=== PATIENT | female | born 1950 | race Caucasian/White ===

== ENCOUNTER 2023-04-23 08:01 | Outpatient (CLI) | payer MEDICARE, BC, SELFPAY ==
--- OUTSIDE RECORDS SUMMARY | 2023-04-26 09:04 | XMS_ITS | Clinical Summary ---
Author Name Unknown Organization [facility] Address [place], [place] [address] Care Team Providers Care Licensed Physical Therapy Assistant Name Role Phone Francy Moreno MD Primary Care Provider [phone] Allergies No known active allergies Medications Medication Sig Dispensed Refills Start Date End Date Status aspirin (ECOTRIN) 81 mg enteric coated tablet Take 1 tablet by mouth once daily with a meal. 0 02/02/2017 Active cholecalciferol (VITAMIN D-3) 2,000 unit capsuleIndications :Vitamin D deficiency Take 1 capsule by mouth once daily. 90 capsule 3 07/12/2017 Active blood-glucose meterIndications:T ype 2 diabetes mellitus without complication, with long-term current use of insulin (HC) Dispense meter, test strips #100 with 3 refills, lancets #100 (3 refills) covered by pt ins. E11.9 NIDDM type II - Test 1 time/day 100 Each 3 06/16/2021 Active Contour Next Test Strips stripIndications:T ype 2 diabetes mellitus without complication, with long-term current use of insulin (HC) USE WITH METER TO TEST BLOOD SUGAR ONCE A DAY 100 Each 3 05/16/2022 Active metFORMIN (GLUCOPHAGE XR) 500 mg Extended-Release tabletIndications: Type 2 diabetes mellitus without complication, with long-term current use of insulin (HC) Take 2 Tablets (1,000 mg) by mouth once daily with a meal. 60 Tablet 2 07/01/2022 Active glipiZIDE (GLUCOTROL) 5 mg tablet 5 mg two times daily before meals. 0 07/20/2022 Active amLODIPine (NORVASC) 5 mg tablet Take 5 mg by mouth once daily. 0 07/20/2022 Active gabapentin (NEURONTIN) 100 mg capsule Take 200 mg by mouth once daily. 0 07/20/2022 Active CPAPIndications:OS A on CPAP CPAP machine for home use at pressure 5-15cmw, nasal mask x1/3month with nasal pillows x 2/mo 1 Each 11 01/25/2023 Active omeprazole (PRILOSEC) 20 mg Delayed-Release capsuleIndications :Dysphagia, unspecified type Take 1 Capsule (20 mg) by mouth once daily before a meal. 90 Capsule 0 04/21/2023 Active losartan-hydrochlo rothiazide (HYZAAR) 100-25 mg tabletIndications: Essential hypertension Take 1 Tablet by mouth once daily. Replaces previous Rx with additional refill. 90 Tablet 0 04/21/2023 Active losartan-hydrochlo rothiazide (HYZAAR) 100-25 mg tabletIndications: Essential hypertension Take 1 Tablet by mouth once daily. Replaces previous Rx with additional refill. 90 Tablet 3 02/23/2022 4 Discontinue d(Reorder (E-cancel not sent)) omeprazole (PRILOSEC) 20 mg Delayed-Release capsuleIndications :Dysphagia, unspecified type Take 1 Capsule (20 mg) by mouth once daily before a meal. 90 Capsule 3 02/23/2022 4 Discontinue d(Reorder (E-cancel not sent)) Active Problems Problem Noted Date Diagnosed Date Obesity, morbid 02/23/2022 Type 2 diabetes mellitus wit hout complication, with long-term current use of insulin 12/05/2020 Depression, recurrent 12/05/2020 Insomnia, idiopathic 03/01/2017 MAXX 05/03/2008 AHI/RDI:19 nasal pillows/ standard 02/02/2017 Obesity, Class II, BMI 35-39.9 01/19/2017 Essential hypertension 01/19/2017 Hyperlipidemia 01/19/2017 Resolved Problems Problem Noted Date Diagnosed Date Resolved Date History of diabetes mellitus, type II 01/19/2017 02/02/2017 Encounters Date Type Department Care Team Description 04/21/2023 Refill [facility] [address] [place] [address] Jewell Britt MD Refill Request (OMEPRAZOL ORAL CAP DELAYED RELEASE 20 MG, LOSARTAN POTASSIUM-HCTZ) 02/10/2023 Orders Only [facility] Scanner 1 scan: (1-Ord) INCOMING RECORDS-SLEEP STUDY, TEDDY DUBOSE, 02/10/2023 01/25/2023 10:00 AM 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 Office Visit [facility] [address] [place] [address] Hardik Tian MD Sleep Follow-up 01/25/2023 Travel from Last 3 Months Immunizations Name Administration Dates Next Due COVID-19 vaccine ([employer] 30mcg/0.3mL) MD DARRELLV 12/31/2020,06/09/2020,05/19/2020 Influenza, High-dose Quadriv alent Inactivated 12/05/2021 Influenza, Inactivated AIIV4 (Age 65+ Years) Preserv Free 12/31/2020,01/01/2020 Influenza, Inactivated IIV3 (Age 65+ Years) Preserv Free 01/18/2017 Pneumococcal Poly,23-Valent (Pneumovax) 06/22/19 19 Pneumococcal conj 13-Valent (Prevnar 13) 017 Tdap 01/31/2010 Zoster (Shingrix-RZV, recombinant) 09/20/2018, Family History Medical History Relation Name Comments Diabetes type II Brother Heart Disease Brother defibrillator in place Hypertension Brother Diabetes type II Father Hypertension Father Cancer-breast Maternal Grandmother Diabetes type II Mother Heart failure Mother Hypertension Mother Hypertension Sister Cancer-ovarian No Family History Relation Name Status Comments Brother Alive Father (Age 90s) Maternal Grandmother Mother (Age 88) Sister Social History Tobacco Use Types Packs/Day Years Used Date Smoking Tobacco: Never Smokeless Tobacco: Never Tobacco Cessation:Counseling Given: Yes Alcohol Use Standard Drinks/Week Comments No 0 (1 standard drink = 0.6 oz pur e alcohol) PHQ-2 Answer Date Recorded PHQ-2 TOTAL SCORE 0 02/23/2022 Social Connections Answer Date Recorded Frequency of Communication with Friends and Fami ly Not on file 03/06/2021 Financial Resource Strain Answer Date R ecorded Difficulty of Paying Living Expenses Not on file 03/06/2021 Difficulty of Paying Living Expenses Not on file 03/06/2021 Sex and Gender Information Value Date Recorded Sex Assigned at Female 06/06/2020 3:47 PM CDT Gender Identity Female 06/06/2020 3:46 PM CDT Sexual Orientation Not on file Obstetrics History Last Filed Vital Signs Vital Sign Reading Time Taken Comments Blood Pressure 142/84 01/25/2023 10:03 AM BRAZING MACHINE SETTER Pulse 76 01/25/2023 10:03 AM BRAZING MACHINE SETTER Temperature 36.9 ??C (98.4 ??F) 06/18/2020 1:42 PM CD T Respiratory Rate - - Oxygen Saturation 95% 01/25/2023 10:03 AM BRAZING MACHINE SETTER Inhaled Oxygen Concentration - - Weight 117 kg (258 lb) 01/25/2023 10:03 AM BRAZING MACHINE SETTER Height 167.5 cm (5' 5.95) 01/25/2023 10:[address] Body Mass Index 41.71 01/25/2023 10:03 AM BRAZING MACHINE SETTER Plan of Treatment Health Maintenance Due Date Last Done Comments Tetanus booster 02/01/2020 01/31/2010 COVID-19 vaccine series ( season) 2022 12/05/2021, 12/31/2020, 06/09/2020, Additional history exists Influenza for age 65+ 11/13/2022 12/05/2021 , 12/31/2020, 01/01/2020, Additional history exists Depression screening for age 12+ 02/23/2023 02/23/2022, 12/31/2020, 12/05/2020, Additional history exists Medicare Wellness for age 65+ 02/24/2023, 12/31/2020, 01/01/2020, Additional history exists Fecal testing sDNA-FIT (Cologuard) for age 45-75 06/20/2023 06/19/2020, 02/17/2017 BMI (ht and wt on same day) for age 18+ 01/26/2024 01/25/2023, 02/23/2022, 12/31/2020, Additional history exists Mammogram for age 45-75 03/06/2024 03/06/20, 01/28/2021, 10/14/2017, Additional history exists Lipids for age 45-75 02/23/2027 02/23/2022, 12/05/2020, 04/19/2020, Additional history exists Tdap Completed 01/31/2010 DEXA/DXA scan for age 65+ Completed 10/14/2017 Pneumococcal series for age 65+ Completed 9, 02/02/2017 Zoster (shingles) series for age 50+ Completed 09/20/2018, 06/28/2018 Hepatitis C screening for ag e 18-79 Completed 01/01/2020 Fecal testing non-DNA (FIT,FOBT,iFOBT) for age 45-75 Discontinued 06/26/2020 (Completed o [facility]side of [facility]) Procedures Procedure Name Priority Date/Time Associated Diagnosis Comments SCAN CORRESP-DIAGNOSTICS 02/10/2023 12:00 AM BRAZING MACHINE SETTER from Last 3 Months Results * SCAN CORRESP-DIAGNOSTICS (02/10/2023 12:00 AM BRAZING MACHINE SETTER) Scanner OTHER from Last 3 Months Advance Directives Documents on File Type Date Recorded 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
== END 2023-04-23 08:02 | disposition home or self-care (01) ==
LOC: NFLDREF 04-26 08:50
PROVIDERS: PCP Internal Medicine; Referring Provider Internal Medicine; Visit Provider Internal Medicine
DX: E11.9 Type 2 diabetes mellitus without complications (principal); E78.5 Hyperlipidemia, unspecified; I10 Essential (primary) hypertension; Z79.84 Long term (current) use of oral hypoglycemic drugs
CPT/HCPCS: 80053; 80061; 82043; 82570

== ENCOUNTER 2023-06-25 03:19 | Emergency (ER) | payer MEDICARE, BC, SELFPAY ==
[2023-06-25] VITALS (8 sets, daily range): BP systolic 156–189; BP diastolic 71–111; PULSE 70–79; RESP 18–20; TEMP 36.8; O2SAT 95–96; BMI 42.0
[2023-06-25] MEDS: ONDANSETRON 2 MG/ML inj 4 MG IVP (03:30)
--- NOTE | 2023-06-25 03:32 | XR_ITS ---
Patient: ATILIO DELEON Facility:?[facility] R[facility] Patient ID:?[id number] Site Patient ID:?[id number]. Site :?1950 Study:?XRay-Chest 2V-06/25/2023 4:25:15 AM Ordering Physician:GARY Final Report: INDICATION: FALL DOWNSTAIRS TECHNIQUE: Chest 2 views. COMPARISON: None. FINDINGS: Cardiovascular and mediastinum: Heart size and vasculature are normal in caliber and appearance. Lungs and pleural spaces: Lungs are clear. No sign of infiltrate. No sign of pleural effusion. No pneumothorax. Bones and soft tissues: No significant findings. IMPRESSION: No evidence of acute cardiopulmonary process. Dictated by Fadi Yee MD @ 06/25/2023 4:54:09 AM Signed by:?Fadi Yee MD @06/25/2023 4:54:09 AM (Electronic Signature)
--- NOTE | 2023-06-25 03:32 | XR_ITS ---
Patient: ATILIO DELEON Facility:?[facility] RIS Patient ID:[id number] Site Patient ID:?[id number]. Site :?1950 Study:?XRay-Shoulder Right 2V-06/25/2023 4:26:05 AM Ordering Physician:GARY Final Report: Indication: Fall Technique: Right shoulder 3 views. Comparison: None. Findings: Alignment is normal. No fractures or bone lesions. Mild degenerative arthrosis of the glenohumeral and AC joints. Impression: No evidence of fracture or dislocation. Dictated by Fadi Yee MD @ 06/25/2023 4:57:15 AM Signed by:?Fadi Yee MD @06/25/2023 4:57:15 AM (Electronic Signature)
--- NOTE | 2023-06-25 03:32 | CT_ITS ---
Patient: ATILIO DELEON Facility:?[facility] R[facility] Patient ID:?[id number] Site Patient ID:?[id number]. Site :?1950 Study:?CT-Spine Cervical W/O-06/25/2023 4:24:36 AM Ordering Physician:GARY Final Report: INDICATION: Trauma. TECHNIQUE: CT cervical spine without contrast. COMPARISON: None. FINDINGS: Vertebrae: Straightening of expected cervical lordosis. There are no fractures or suspicious bony lesions. Discs and facet joints: Mild diffuse degenerative changes in the disc spaces and facet joints. Extraspinal findings: Paraspinous soft tissues are unremarkable. There is a 1.1 centimeter hypodense left thyroid nodule. IMPRESSION: 1. No sign of acute cervical spine fracture. 2. Multilevel degenerative spondylosis. 3. There is a 1.1 centimeter hypodense left thyroid nodule. Recommend nonemergent thyroid ultrasound to further characterize if not previously performed. Please note that all CT scans at this facility use dose modulation, iterative reconstruction, and/or weight-based dosing when appropriate to reduce radiation dose to as low as reasonably achievable. Dictated by Fadi Yee MD @ 06/25/2023 4:51:12 AM Signed by:?Fadi Yee MD @06/25/2023 4:51:12 AM (Electronic Signature)
--- NOTE | 2023-06-25 03:32 | CT_ITS ---
Patient: ATILIO DELEON Facility:?[facility] RIS Patient ID:?[id number] Site Patient ID:?[id number]. Site :?1950 Study:?CT-Head W/O-06/25/2023 4:23:50 AM Ordering Physician:GARY Final Report: INDICATION: FALL DOWNSTAIRS TECHNIQUE: Head CT without contrast. COMPARISON: None. FINDINGS: CSF spaces: Mild global parenchymal volume loss. Brain parenchyma and extra-axial spaces: There are nonspecific low attenuation white matter changes consistent with chronic microvascular disease. No sign of mass effect, hemorrhage, or midline shift. Skull base and calvarium: The visualized paranasal sinuses and mastoid air cells demonstrate no acute or significant findings. The visualized orbits are grossly unremarkable. Moderate-sized right parietal scalp hematoma. IMPRESSION: Moderate-sized right parietal scalp hematoma. No evidence of underlying skull fracture or intracranial hemorrhage. Mild global parenchymal volume loss and chronic microvascular ischemic changes. Please note that all CT scans at this facility use dose modulation, iterative reconstruction, and/or weight-based dosing when appropriate to reduce radiation dose to as low as reasonably achievable. Dictated by Fadi Yee MD @ 06/25/2023 4:47:33 AM Signed by:?Fadi Yee MD @06/25/2023 4:47:33 AM (Electronic Signature)
--- NOTE | 2023-06-25 03:32 | XR_ITS ---
Patient: ATILIO DELEON Facility:?[facility] RIS Patient ID:?[id number] Site Patient ID:?[id number]. Site :?1950 Study:?XRay-Extremity Right WRIST 3V-06/25/2023 4:26:46 AM Ordering Physician:GARY Final Report: Indication: Injury and pain Technique: Right wrist 3 view Comparison: None Findings: Bones: Subtle lucency within the distal ulnar diaphysis with extension into the head of the ulna. Joint spaces: Mild degenerate arthrosis of the radiocarpal joint. Soft tissues: Mild soft tissue swelling adjacent to the distal ulna. Impression: Nondisplaced to minimally displaced fracture of the distal ulnar diaphysis with extension into the head of the ulna. Dictated by Fadi Yee MD @ 06/25/2023 5:00:59 AM Signed by:?Fadi Yee MD @06/25/2023 5:00:59 AM (Electronic Signature)
--- NOTE | 2023-06-25 03:35 | ED.FALL ---
HPI - Fall General Date Seen: 06/25/23 Chief Complaint: Fall/Minor Trauma Stated Complaint: Fell down stairs Time Seen by Provider: 06/25/23 03:34 Source: patient Mode of arrival: ambulatory Limitations: no limitations History of Present Illness HPI Narrative: Patient is a 73-year-old female who fell asleep in her chair. When she woke she stumbled at the top of her stairs and fell down approximately [address] She did not lose consciousness but does have pain in the back of her head, right shoulder, right wrist. She denies any chest pains or shortness of breath. She has no bleeding noticed. She feels nauseated and did vomit once at home and once in the ER. Trauma team was activated. Related Data Home Medications Medication Instructions Recorded Confirmed aspirin 81 mg tablet,delayed 81 mg PO DAILY 07/20/22 04/26/23 release blood sugar diagnostic (Contour 07/20/22 04/26/23 Next Test Strips) cholecalciferol (vitamin D3) 125 125 mcg PO QDAY 07/20/22 04/26/23 mcg (5,000 unit) capsule omeprazole 20 mg capsule,delayed 20 mg PO DAILY 07/20/22 04/26/23 release Previous Rx's Medication Instructions Recorded amlodipine 5 mg tablet 5 mg PO QDAY #90 tabs 04/26/23 glipizide 5 mg tablet 5 mg PO BIDWMEAL #180 tabs 04/26/23 losartan 100 1 tab PO QDAY #90 tabs 04/26/23 mg-hydrochlorothiazide 25 mg tablet metformin 1,000 mg 24 hr 1,000 mg PO QDAY #90 tabs 04/26/23 tablet,extended release (gastric reten.) simvastatin 10 mg tablet 10 mg PO QPM #90 tabs 04/26/23 ondansetron 8 mg disintegrating 8 mg PO Q8H PRN nausea and 06/25/23 tablet vomiting #12 tabs Allergies Allergy/AdvReac Type Severity Reaction Status Date / Time No Known Drug Allergies Allergy Verified 06/25/23 03:54 Review of Systems Narrative: Review of systems is outlined above otherwise noted to be negative. PFS PFS Surgical History (Updated 07/08/22 @ 14:58 by Rhonda Reynolds) History of tubal ligation ?Z98.51 - Tubal ligation status (ICD-10) History of tonsillectomy ?Z90.89 - Acquired absence of other organs (ICD-10) History of laparoscopic cholecystectomy ?Z90.49 - Acquired absence of other specified parts of digestive tract (ICD-10) History of hand surgery ?Z98.890 - Other specified postprocedural states (ICD-10) Family History (Updated 07/08/22 @ 14:59 by Rhonda Reynolds) Mother Heart failure Diabetes High blood pressure Father Diabetes High blood pressure Brother Diabetes High blood pressure Heart disease Sister High blood pressure Maternal Grandmother Breast cancer Social History Smoking Status: Never smoker How often do you have a drink containing alcohol: never AUDIT-C Alcohol total score: 0 Non-prescribed substance use: denies use Little interest or pleasure in doing things: not at all Feeling down, depressed, or hopeless: not at all Exam Narrative: Exam Narrative: Vitals noted. HEENT: She has a tender lump on the occipital parietal area of her scalp. No cuts or bleeding. Conjunctiva clear. Tympanic membranes are pearly white bilaterally. No postauricular ecchymosis or hemotympanum. Posterior pharynx is clear without erythema or exudate. She has some tenderness along the right TMJ joint but no crepitus. There is full range of motion. Neck is supple without adenopathy, thyromegaly, carotid bruit. Full range of motion of the cervical spine without pain. Lungs: Clear to auscultation in all knight. No wheezes, rales, rhonchi. Heart: Regular rate and rhythm without murmur. Abdomen: Soft and nontender. No guarding, rigidity, rebound. Bowel sounds are normal. No palpable masses. Extremities: No cyanosis or edema. Good distal pulses. She has some bruising of the right wrist but range of motion is full. She is tender over the ulnar styloid. She can fully pronate and supinate the forearm. She has pain with movement of the right shoulder but there is full range of motion. Skin: No abnormalities noted of the exposed skin. Neurologic: Awake, alert, fully oriented. Neurologic exam is nonfocal. She does feel lightheaded when she stands. Const: Vital Signs, click to edit/add: Vital Signs - 24 hr 06/25/23 03:20 06/25/23 03:30 06/25/23 04:18 Temperature 98.2 F Pulse Rate 70 Pulse Rate [Right Pulse Oximeter] 79 Respiratory Rate 18 20 Blood Pressure 164/71 H Blood Pressure [Ri ght Upper Arm] 189/111 H Pulse Oximetry 96 95 95 Oxygen Delivery Me thod Room Air 06/25/23 04:22 06/25/23 04:32 06/25/23 04:42 Temperature Pulse Rate 71 75 73 Pulse Rate [Right Pulse Oximeter] Respiratory Rate 20 20 20 Blood Pressure 156/76 H 161/75 H 156/77 H Blood Pressure [Ri ght Upper Arm] Pulse Oximetry 95 95 95 Oxygen Delivery Me thod Course Course ED Course: Patient was seen and examined. She did have some vomiting and was given Zofran 4 mg IV. Following her initial assessment she is found to be hemodynamically stable. Trauma team was activated and labs were drawn for CBC, BMP. X-rays of her right wrist, right shoulder, chest as well as CT scans of her head and cervical spine were all ordered. Reevaluation(s) Reevaluation #1: All of her imaging is unremarkable with the exception of a nondisplaced fracture to the distal ulna. She is lightheaded when she attempts to stand. Her labs are reassuring. Reevaluation #2: Patient is placed in a short-arm splint for her distal ulna fracture. Vital Signs Vital signs: Initial Vital Signs Temperature 98.2 F 06/25/23 03:20 Temperature Source Temporal Artery Scan 06/25/23 03:20 Pulse Rate 79 06/25/23 03:20 Respiratory Rate 18 06/25/23 03:20 Blood Pressure 189/111 H 06/25/23 03:20 Blood Pressure Mean 137 H 06/25/23 03:20 Blood Pressure Position Supine 06/25/23 03:20 Pulse Oximetry 96 06/25/23 03:20 Oxygen Delivery Method Room Air 06/25/23 03:20 Vital Signs Temperature 98.2 F 06/25/23 03:20 Pulse Rate 79 06/25/23 03:20 Respiratory Rate 18 06/25/23 03:20 Blood Pressure 189/111 H 06/25/23 03:20 Pulse Oximetry 96 06/25/23 03:20 Oxygen Delivery Method Room Air 06/25/23 03:20 Temperature 98.2 F 06/25/23 03:20 Pulse Rate 73 06/25/23 04:42 Respiratory Rate 20 06/25/23 04:42 Blood Pressure 156/77 H 06/25/23 04:42 Pulse Oximetry 95 06/25/23 04:42 Oxygen Delivery Method Room Air 06/25/23 03:20 - Fall Lab Data Labs: Lab Results 06/25/23 Range/Units 03:30 WBC 12.28 H (4.50-11.00) K/uL RBC 4.16 (4.00-5.20) m/uL Hgb 13.3 (12.0-16.0) gm/dL Hct 39.4 (33.0-51.0) % MCV 95 (80-100) fL MCH 32 (26-34) pg MCHC 34 (32-36) gm/dL RDW Coeff of Sammy 12.9 (11.5-15.5) % Plt Count 314 (140-440) K/uL Neut % (Auto) 60.1 (42.0-72.0) % Lymph % (Auto) 29.9 (20-44) % Pacific % (Auto) 6.4 (0.0-11.0) % Eos % (Auto) 2.3 (0.0-7.0) % Baso % (Auto) 0.4 (0.0-3.0) % Neut # (Auto) 7.40 H (1.7-7.0) K/uL Lymph # (Auto) 3.70 H (0.90-2.90) K/uL Pacific # (Auto) 0.80 (0.00-0.90) K/UL Eos # (Auto) 0.30 (0.00-0.50) K/uL Baso # (Auto) 0.00 (0.00-0.30) K/uL Abs Immat Gran (auto) 0.10 (0.00-0.30) K/uL Imm/Tot Granulo (auto) 0.9 % Sodium 141 (135-149) mmol/L Potassium 3.5 L (3.6-5.1) mmol/L Chloride 110 (96-114) mmol/L Carbon Dioxide 25 (20-32) mmol/L Anion Gap 6 L (7-15) mEq/L BUN 28 (7-30) mg/dL Creatinine 0.7 (0.5-1.5) mg/dL Estimated GFR 92 ml/min Glucose 229 H (60-115) mg/dL Calcium 9.6 (8.4-10.6) mg/dL Discharge Plan Discharge Clinical Impression: Closed fracture of distal end of right ulna, Fall Patient Disposition: Home, Self-Care Condition: Improved Additional Instructions: Keep wrist splint on until seen by orthopedics. Tylenol 1000 mg every 6 hours as needed for pain. Ibuprofen 600 mg 3 times daily as needed for pain. Zofran 8 mg every 8 hours as needed for nausea. Follow-up with your PCP next week. Your PCP will need to refer you to orthopedics unless she can do the cast herself. Elevate the right wrist and use ice regularly. Prescriptions: New ondansetron 8 mg tablet,disintegrating 8 mg PO Q8H PRN (Reason: nausea and vomiting) Qty: 12 0RF No Action aspirin 81 mg tablet,delayed release (DR/EC) 81 mg PO DAILY omeprazole 20 mg capsule,delayed release(DR/EC) 20 mg PO DAILY amlodipine 5 mg tablet 5 mg PO QDAY Qty: 90 3RF glipizide 5 mg tablet 5 mg PO BIDWMEAL Qty: 180 3RF losartan-hydrochlorothiazide 100-25 mg tablet 1 tab PO QDAY Qty: 90 3RF metformin 1,000 mg tablet,ER norman.retention 24 hr 1,000 mg PO QDAY Qty: 90 3RF simvastatin 10 mg tablet 10 mg PO QPM Qty: 90 3RF cholecalciferol (vitamin D3) 125 mcg (5,000 unit) capsule 125 mcg PO QDAY (DME) Contour Next Test Strips Strip See Rx Instructions .Route Rx Instructions: As directed Follow Up/Referrals: Francy Moreno MD [Primary Care Provider] - Stand Alone Forms: [employer] Info Instructions
--- OUTSIDE RECORDS SUMMARY | 2023-06-25 03:43 | XMS_ITS | Clinical Summary ---
Author Name Unknown Organization [facility] [facility] Address [place], [place] [address] Care Team Providers Care Superintendent Plant Protection Name Role Phone Francy Moreno MD Primary Care Provider [phone]- [phone] Allergies No known active allergies Medications Medication Sig Dispensed Refills Start Date End Date Status aspirin (ECOTRIN) 81 mg enteric coated tablet Take 1 tablet by mouth once daily with a meal. 0 02/02/2017 Active cholecalciferol (VITAMIN D-3) 2,000 unit capsuleIndications:V itamin D deficiency Take 1 capsule by mouth once daily. 90 capsule 3 07/12/2017 Active blood-glucose meterIndications:Typ e 2 diabetes mellitus without complication, with long-term current use of insulin (HC) Dispense meter, test strips #100 with 3 refills, lancets #100 (3 refills) covered by pt ins. E11.9 NIDDM type II - Test 1 time/day 100 Each 3 06/16/2021 Active Contour Next Test Strips stripIndications:Typ e 2 diabetes mellitus without complication, with long-term current use of insulin (HC) USE WITH METER TO TEST BLOOD SUGAR ONCE A DAY 100 Each 3 05/16/2022 Active metFORMIN (GLUCOPHAGE XR) 500 mg Extended-Release tabletIndications:Ty pe 2 diabetes mellitus without complication, with long-term current use of insulin (HC) Take 2 Tablets (1,000 mg) by mouth once daily with a meal. 60 Tablet 2 07/01/2022 Active glipiZIDE (GLUCOTROL) 5 mg tablet 5 mg two times daily before meals. 07/20/2022 Active amLODIPine (NORVASC) 5 mg tablet Take 5 mg by mouth once daily. 07/20/2022 Active gabapentin (NEURONTIN) 100 mg capsule Take 200 mg by mouth once daily. 07/20/2022 Active CPAPIndications:MAXX on CPAP CPAP machine for home use at pressure 5-15cmw, nasal mask x1/3month with nasal pillows x 2/mo 1 Each 11 01/25/2023 Active omeprazole (PRILOSEC) 20 mg Delayed-Release capsuleIndications:D ysphagia, unspecified type Take 1 Capsule (20 mg) by mouth once daily before a meal. 90 Capsule 04/21/2023 Active losartan-hydrochloro thiazide (HYZAAR) 100-25 mg tabletIndications:Es sential hypertension Take 1 Tablet by mouth once daily. Replaces previous Rx with additional refill. 90 Tablet 04/21/2023 Active Active Problems Problem Noted Date Diagnosed Date [...] Type Department Care Team Description 04/21/[address] [facility] [address] [place] [address] Jewell Britt MD Refill Request (OMEPRAZOL ORAL CAP DELAYED RELEASE 20 MG, LOSARTAN POTASSIUM-HCTZ) from Last 3 Months Immunizations Name Administration Dates Next Due COVID-19 vaccine ([employer] Shopline 30mcg/0.3mL) CARLOS RAMÍREZ 12/31/2020,06/09/2020,05/19/2020 Influenza, High-dose Quadriv alent Inactivated 12/05/2021 Influenza, Inactivated AIIV4 (Age 65+ Years) Preserv Free 12/31/2020,01/01/2020 Influenza, Inactivated IIV3 (Age 65+ Years) Preserv Free 01/18/2017 Pneumococcal Poly,23-Valent (Pneumovax) 06/22/19 Pneumococcal conj 13-Valent (Prevnar 13) 017 Tdap [...] Comments Blood Pressure 142/84 01/25/2023 10:03 AM TEST CENTER MANAGER Pulse 76 01/25/2023 10:03 AM TEST CENTER MANAGER Temperature 36.9 ??C (98.4 ??F) 06/18/2020 1:42 PM CD T Respiratory Rate - - Oxygen Saturation 95% 01/25/2023 10:03 AM TEST CENTER MANAGER Inhaled Oxygen Concentration - - Weight 117 kg (258 lb) 01/25/2023 10:03 AM TEST CENTER MANAGER Height 167.5 cm (5' 5.95) 01/25/2023 10:[address] Body Mass Index 41.71 01/25/2023 10:03 AM TEST CENTER MANAGER Plan of Treatment Health Maintenance Due Date Last Done Comments Tetanus booster 02/01/2020 01/31/2010 COVID-19 vaccine series (2022- season) 2022 12/05/2021, 12/31/2020, 06/09/2020, Additional history exists Depression screening for age 12+ 02/23/2023 02/23/2022, 12/31/2020, 12/05/2020, Additional history exists Medicare Wellness for age 65+ 02/24/2023, 12/31/2020, 01/01/2020, Additional history exists Fecal testing sDNA-FIT (Cologuard) for age 45-75 06/20/2023 06/19/2020, 02/17/2017 Influenza for age 65+ 11/14/2023 12/05/2021 , 12/31/2020, 01/01/2020, Additional history exists BMI (ht and wt on same day) for age 18+ 01/26/2024 01/25/2023, 02/23/2022, 12/31/2020, Additional history exists Mammogram for age 45-75 03/06/2024 03/06/20 22, 01/28/2021, 10/14/2017, Additional history exists Lipids for [...] 45-75 Discontinued 06/26/2020 (Completed [facility] [place]) Procedures Procedure Name Priority Date/Time Associated Diagnosis Comments XR MAMMO BILAT SCREENING Routine 03/06/2022 2:51 PM TEST CENTER MANAGER Visit for screening mammogram LIPID PANEL W REFLEX MEASURED LDL Routine 02/23/2022 2:20 PM TEST CENTER MANAGER Hyperlipidemia, unspecified hyperlipidemia type SCAN-FECAL TEST DNA (COLOGUARD) 06/19/2020 12:00 AM CDT ANTI HCV Routine 01/01/2020 5:05 PM CDT Need for hepatitis C screening test XR DXA BONE DENSITY 2 SITES AXIAL Routine 10/14/2017 4:02 PM CDT Asymptomatic menopausal state from Last 3 Months or Most Recently Relevant to Health Maintenance Results * XR MAMMO BILAT SCREENING (03/06/2022 2:51 PM TEST CENTER MANAGER) Anatomical Region Laterality Modality BREASTS, Breast Left, Breast Right Bilateral Mammography Impressions 03/10/2022 3:33 PM TEST CENTER MANAGER ??There is no radiographic evidence for malignancy. ??Recommend annual mammograms. MAMMOGRAM ASSESSMENT: ??ACR 1 Negative PATIENTS: You will also receive a letter with your examination results in an easy to read format. ??If you have questions about your results, please contact your referring provider. Narrative 03/10/2022 3:33 PM TEST CENTER MANAGER For Patients: As a result of the Century Cures Act, medical imaging exams and procedure reports are released immediately into your electronic medical record. You may view this report before your referring provider. If you have questions, please contact your health care provider. XR MAMMO BILAT SCREENING [[id number]] CLINICAL HISTORY: ??This is an asymptomatic 72 y.o. patient. INDICATION FOR EXAM: Mammogram Screening. TECHNIQUE: CC & MLO views were obtained. ??This study was evaluated with the assistance of Computer-Aided Detection. COMPARISON FILM: Yes 01/28/21 [facility] 10/14/17 [facility] FINDINGS: ??The breasts have scattered areas of fibroglandular density. There are no dominant masses, suspicious micro calcifications or areas of architectural distortion. Jewell Britt MD MAMMO * (ABNORMAL) LIPID PANEL W REFLEX MEASURED LDL (02/23/2022 2:20 PM TEST CENTER MANAGER) CHOLESTEROL,TOTAL 199 100 - 199 mg/dL 02/25/2022 4:05 AM TEST CENTER MANAGER [facility] TRIGLYCERIDES 267(H) <150 mg/dL 02/25/2022 4:05 AM [facility] HDL CHOLESTEROL 44 >40 mg/dL 4:05 AM TEST CENTER MANAGER [facility] NON-HDL CHOLESTEROL 155(H) <145 mg/dl 02/25/2022 4:05 AM [facility] CHOL/HDL RATIO 4.52(H) <4.50 02/25/2022 4:05 AM TEST CENTER MANAGER [facility] LDL CHOLESTEROL 102 <=130 mg/dL 02/25/2022 4:05 AM [facility] VLDL CHOLESTEROL 53(H) <=30 mg/dL 02/25/2022 4:05 AM [facility] TRA [facility]ORAT[facility] PROVIDER ORDERED STATUS RANDOM 02/25/2022 4:05 AM [facility] TR[facility] Blood BLOOD SPECIMEN / Unknown Venipuncture / Unknown 02/23/2022 2:20 PM TEST CENTER MANAGER 02/23/2022 2:23 PM TEST CENTER MANAGER Jewell Britt MD CHEMISTRY [facility] [address] [place] [address], * SCAN-FECAL TEST DNA (COLOGUARD) (06/19/2020 12:00 AM CDT) Scanner OTHER * ANTI HCV (01/01/2020 5:05 PM CDT) HEPATITIS C ANTIBODY Non-React brenda Non-React brenda 01/02/2020 5:04 PM CDT [facility] Comment:Antibodies to HCV no t detected; does not exclude the possibility of exposure to HCV. Blood BLOOD SPECIMEN / Unknown Venipuncture / Unknown 01/01/2020 5:05 PM CDT 01/01/2020 5:05 PM CDT Choco Holloway MD SEND OUTS [facility] [address] [place] [address], * XR DXA BONE DENSITY 2 SITES AXIAL (10/14/2017 4:02 PM CDT) Anatomical Region Laterality Modality Spine, HIPS, HIPL, HIPR Other Narrative 10/18/2017 1:51 PM CDT Please see scanned document for results of this study. 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
[2023-06-25 03:44] LABS: Basophils Percent Auto 0.4 % (0.0-3.0); Eosinophils Percent Auto 2.3 % (0.0-7.0); Hematocrit 39.4 % (33.0-51.0); Hemoglobin* 13.3 gm/dL (12.0-16.0); Immature Granulocytes Pct Auto 0.9 %; Lymphocytes Percent Auto 29.9 % (20-44); Mean Corpuscular HGB Conc 34 gm/dL (32-36); Mean Corpuscular Hemoglobin 32 pg (26-34); Mean Corpuscular Volume 95 fL (80-100); Monocytes Percent Auto 6.4 % (0.0-11.0); Neutrophils Percent Auto 60.1 % (42.0-72.0); Platelet Count* 314 K/uL (140-440); RDW Coefficient of Variation % 12.9 % (11.5-15.5); Red Blood Count 4.16 m/uL (4.00-5.20); White Blood Count* 12.28 K/uL (4.50-11.00)
[2023-06-25 03:47] LABS: Chloride* 110 mmol/L (96-114)
[2023-06-25 03:48] LABS: Potassium* 3.5 mmol/L (3.6-5.1); Sodium* 141 mmol/L (135-149)
[2023-06-25 03:49] LABS: Slide Review Reflex No
[2023-06-25 03:50] LABS: Creatinine* 0.7 mg/dL (0.5-1.5); Estimated Glomerular Filt Rate 92 ml/min
[2023-06-25 03:51] LABS: Anion Gap 6 mEq/L (7-15); Blood Urea Nitrogen* 28 mg/dL (7-30); Calcium* 9.6 mg/dL (8.4-10.6); Carbon Dioxide* 25 mmol/L (20-32); Glucose* 229 mg/dL (60-115)
[2023-06-25] MEDS: ONDANSETRON ODT 4 MG TAB 8 MG PO (05:47)
== END 2023-06-25 05:52 | disposition home or self-care (01) ==
PROVIDERS: Emergency Provider Family Medicine; PCP Internal Medicine
DX: S52.601A Unspecified fracture of lower end of right ulna, initial encounter for closed fracture (principal); W10.9XXA Fall (on) (from) unspecified stairs and steps, initial encounter
CPT/HCPCS: 36415; 70450; 71046; 72125; 73030; 73110; 80048; 81003; 85025; 94761; 96374; 99283; 99284; 99285; 99291; A9270; J2405

== ENCOUNTER 2023-07-19 13:36 | Outpatient (CLI) | payer MEDICARE, BC, SELFPAY ==
--- OUTSIDE RECORDS SUMMARY | 2023-07-19 13:39 | XMS_ITS | Clinical Summary ---
Author Name Unknown Organization [employer] [facility] Address [place], [place] [address] Care Team Providers Care Leave Manager Name Role Phone Francy Moreno MD Primary Care Provider +1- [phone] Allergies No known active allergies Medications Medication [...] Type Department Care Team Description 04/21/2023 [facility]ill [facility] [address] [place] [address] Jewell Britt MD Refill Request (OMEPRAZOL ORAL CAP DELAYED RELEASE 20 MG, LOSARTAN POTASSIUM-HCTZ) from Last 3 Months Immunizations Name Administration Dates Next Due COVID-19 vaccine ([employer] 30mcg/0.3mL) CARLOS RAMÍREZ 12/31/2020,06/09/2020,05/19/2020 Influenza, High-dose Quadriv [...] Comments Blood Pressure 142/84 01/25/2023 10:03 AM STRIP STAMP STRAIGHTENER Pulse 76 01/25/2023 10:03 AM STRIP STAMP STRAIGHTENER Temperature 36.9 ??C (98.4 ??F) 06/18/2020 1:42 PM CD T Respiratory Rate - - Oxygen Saturation 95% 01/25/2023 10:03 AM STRIP STAMP STRAIGHTENER Inhaled Oxygen Concentration - - Weight 117 kg (258 lb) 01/25/2023 10:03 AM STRIP STAMP STRAIGHTENER Height 167.5 cm (5' 5.95) 01/25/2023 10:[address] Body Mass Index 41.71 01/25/2023 10:03 AM STRIP STAMP STRAIGHTENER Plan of Treatment Health Maintenance Due Date [...] MAMMO BILAT SCREENING Routine 03/06/2022 2:51 PM STRIP STAMP STRAIGHTENER Visit for screening mammogram LIPID PANEL W REFLEX MEASURED LDL Routine 02/23/2022 2:20 PM STRIP STAMP STRAIGHTENER Hyperlipidemia, unspecified hyperlipidemia type SCAN-FECAL TEST DNA (COLOGUARD) 06/19/2020 12:00 AM CDT ANTI HCV Routine 01/01/2020 5:05 PM CDT Need for hepatitis C screening test XR DXA BONE DENSITY 2 SITES AXIAL Routine 10/14/2017 4:02 PM CDT Asymptomatic menopausal state from Last 3 Months or Most Recently Relevant to Health Maintenance Results * XR MAMMO BILAT SCREENING (03/06/2022 2:51 PM STRIP STAMP STRAIGHTENER) Anatomical Region Laterality Modality BREASTS, Breast Left, Breast Right Bilateral Mammography Impressions 03/10/2022 3:33 PM STRIP STAMP STRAIGHTENER ??There is no radiographic evidence for malignancy. ??Recommend annual mammograms. MAMMOGRAM ASSESSMENT: ??ACR 1 Negative PATIENTS: You will also receive a letter with your examination results in an easy to read format. ??If you have questions about your results, please contact your referring provider. Narrative 03/10/2022 3:33 PM STRIP STAMP STRAIGHTENER For Patients: As a result of the Century Cures Act, medical imaging exams and procedure reports are released immediately into your electronic medical record. You may view this report before your referring provider. If you have questions, please contact your health care provider. XR MAMMO BILAT SCREENING [[id number]] CLINICAL HISTORY: ??This is an asymptomatic 72 y.o. patient. INDICATION FOR EXAM: Mammogram Screening. TECHNIQUE: CC & MLO views were obtained. ??This study was evaluated with the assistance of Computer-Aided Detection. COMPARISON FILM: Yes 01/28/21 [facility] 10/14/17 [facility] FINDINGS: ??The breasts have scattered areas of fibroglandular density. There are no dominant masses, suspicious micro calcifications or areas of architectural distortion. Jewell Britt MD MAMMO * (ABNORMAL) LIPID PANEL W REFLEX MEASURED LDL (02/23/2022 2:20 PM STRIP STAMP STRAIGHTENER) CHOLESTEROL,TOTAL 199 100 - 199 mg/dL 02/25/2022 4:05 AM STRIP STAMP STRAIGHTENER [facility] TRIGLYCERIDES 267(H) <150 mg/dL 02/25/2022 4:05 AM [facility] HDL CHOLESTEROL 44 >40 mg/dL 4:05 AM STRIP STAMP STRAIGHTENER [facility] NON-HDL CHOLESTEROL 155(H) <145 mg/dl 02/25/2022 4:05 AM [facility] CHOL/HDL RATIO 4.52(H) <4.50 02/25/2022 4:05 AM STRIP STAMP STRAIGHTENER [facility] LDL CHOLESTEROL 102 <=130 mg/dL 02/25/2022 4:05 AM [facility] VLDL CHOLESTEROL 53(H) <=30 mg/dL 02/25/2022 4:05 AM [facility] TRA LABORAT[facility] PROVIDER ORDERED STATUS RANDOM 02/25/2022 4:05 AM [facility] Blood BLOOD SPECIMEN / Unknown Venipuncture / Unknown 02/23/2022 2:20 PM STRIP STAMP STRAIGHTENER 02/23/2022 2:23 PM STRIP STAMP STRAIGHTENER Jewell Britt MD CHEMISTRY [facility] [address] [place] [address], * SCAN-FECAL TEST DNA (COLOGUARD) (06/19/2020 12:00 AM CDT) Scanner OTHER * ANTI HCV (01/01/2020 5:05 PM CDT) HEPATITIS C ANTIBODY Non-React brenda Non-React brenda 01/02/2020 5:04 PM CDT [facility] Comment:Antibodies to HCV no t detected; does not exclude the possibility of exposure to HCV. Blood BLOOD SPECIMEN / Unknown Venipuncture / Unknown 01/01/2020 5:05 PM CDT 01/01/2020 5:05 PM CDT Choco Holloway MD SEND OUTS [facility] [address] [place] [address], * XR DXA BONE DENSITY 2 SITES AXIAL (10/14/2017 4:02 PM CDT) Anatomical Region Laterality Modality Spine, HIPS, HIPL, HIPR Other Narrative 10/18/2017 1:51 PM CDT Please see scanned document for results of this study. 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
--- NOTE | 2023-07-19 14:00 | MM_ITS ---
Patient: ATILIO DELEON Facility:?[facility] Patient ID:?[id number] Site Patient ID:?[id number]. Site :?[id number] Study:?XRay-Breast Bilateral 3D W/CAD-07/19/2023 2:41:14 PM Ordering Physician:Francy Manzo Final Report: BILATERAL SCREENING MAMMOGRAM WITH COMPUTER-AIDED DETECTION AND TOMOSYNTHESIS TECHNIQUE: CC and MLO views were obtained. These mammographic images have been obtained using full-field digital technique. These mammographic images were interpreted with the benefit of computer-aided detection. Breast Tomosynthesis was used in this interpretation. COMPARISON FILM: 03/06/22, 01/28/21, 10/14/17. FINDINGS: There are scattered areas of fibroglandular density IMPRESSION: There is no radiographic evidence for malignancy. ASSESSMENT: BI-RADS Category 1: Negative RECOMMENDATION: Routine screening mammogram in 1 year. A lay language report of this examination will be provided to the patient. Enrike Almodovar M.D. Diagnostic Radiologist [email or web address] Transcribed: 12:44 p.mTesfaye shin/Dictated by: Enrike Almodovar MD @ 07/20/2023 10:02:00 AM Signed by:Asif Almodovar MD @07/20/2023 1:51:10 PM (Electronic Signature)
== END 2023-07-19 13:37 | disposition home or self-care (01) ==
LOC: MAMMO 13:37
PROVIDERS: PCP Internal Medicine; Visit Provider Internal Medicine
DX: Z12.31 Encounter for screening mammogram for malignant neoplasm of breast (principal)
CPT/HCPCS: 77063; 77067

== ENCOUNTER 2023-09-29 13:00 | Outpatient (RCR) | payer MEDICARE, BC, SELFPAY ==
--- NOTE | 2023-07-15 16:14 | OT.OPOE ---
OT Outpatient Ortho Eval OT Outpatient Ortho Eval* Start: 07/14/23 15:53 Freq: Status: Active Protocol: Document 07/15/23 15:51 AMB (Rec: 07/15/23 16:11 AMB [id number]) E-signed By Akanksha Jack, OTR/L, CLT, GROUP RESERVATIONS COORDINATOR OT OP Ortho Eval Details Complexity Complexity Low Insurance Information Insurance Information Medicare B Outpatient History/Precautions Current Condition/Medical Diagnosis Referring Provider Kirti Bonilla PA-C Treatment Diagnosis RUE distal ulna fx with pain, swelling, weakness and limited ROM RUE wrist Date of Onset 06/25/23 Medical Conditions DM,HTN Other Conditions Medications: Metformin, baby aspirin, alpha lipouc acid, losartan potassium, amlodipine , omeprazole, simvastatin, glipizide, Tylenol Medical/Functional History Medical History Reviewed Yes Prior Level of Function/Mobility Full, pain-free use of RUE, lives alone, independent in all ADLs and IADLs, drives, etc. Social History Employment Status Retired Hobbies knitting, crocheting, reading Fitness sedentary Ortho Subjective Subjective Subjective Pt states that on June 24, she got up to use the bathroom in the middle of the night and mis-judged where her staircase was causing her to fall 18 steps down, she sustained bruised ribs, sprained ankle, bumps on her head, and RUE distal unla fx. Pt states she feels so Fortunate that it was not worse. Pt states her pain is really well managed, using Tylenol if she needs it. Pt has been able to drive to her appointments and is managing well at home, except that she is struggling to open containers and cannot put her socks on. Goniometric Comments Goniometric Comments Goniometric Comments 07/15/23 Pt demonstrates AROM of BUE to be WNL with the exception of her RUE wrist and forearm. AROM of her RUE wrist / forearm/hand: Flexion is 45 Extension is [address] is 15 Opposition is full Composite fist is full Pronation is 30 Supination is 45 Too early for strength testing . OT Objective Data Hand Hand Dominance Right Skin/Wounds/Edema Comments 07/15/23 Moderate swelling is appreciated at the ulnar wrist , significant bruising present at ulnar wrist, forearm and dorsal hand. Pt denies any paresthesia. 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 She presents to OT today with mild pain, swelling, limited ROM and weakness in RUE wrist and forearm. Pt is having difficulty with writing, dressing herself, cooking, and is not able to participate in her leisure activities secondary to the above mentioned limitations. Pt will benefit from skilled OT intervention to address deficits and restore full, pain-free use of her RUE. Occupational Therapy Treatment Plan - OP Potential Rehabilitation Potential Good Set Goals Goals Set with Patient Yes Goals Goals 1. Pt will be independent and compliant with HEP in order to resume full, pain-free use of the involved UE. 3 weeks 2. Pt will demonstrate full, pain-free AROM of the involved UE in order to improve ability to grasp and hold. 6 weeks 3. Pt will demonstrate pain- free home child care provider and pinch strength comparable to the uninvolved side in order to improve functional grasp, hold, reach, and lifting ability needed to complete self-care, leisure tasks, and work activities. 8 weeks. Treatment Plan Treatment Plan Evaluation,Edema Control,Joint Mobilization,Manual Therapy, Splinting,Therapeutic Exercise ,Therapeutic Activities,Self Care/Home Management,Education Expected Frequency 1-2x Week Expected Duration 8-10 Weeks Home Program Home Program Home Program Initiated Home Program Specifics Provided training and practice in HEP for gentle, pain-free AROM and non-resisted muscle pumps of the RUE hand, wrist and forearm. Following demo, pt is able to complete exs with minimal cues. Pt was provided with written instructions for all exs for use at home. Pt was also provided with a compression sleeve to wear under her splint. Recertification Information Recertification Information Initial Certification Date 07/15/23 Recertification Due Date 10/13/23 Reasons to Continue Skilled Therapy Initiated OT today to address pain, weakness, swelling, and limited AROM of the RUE hand, wrist, and forearm. Rehabilitation Potential Good Click To Default 'Per treatment plan' Per treatment plan Continued Plan of Care and Interventions Per treatment plan Provider Signature Shows Agreement With POC & Medical Necessity Physician Comment/Change Comment or Changes Physician NPI Number #
--- NOTE | 2023-09-03 10:18 | PT.OPEX ---
Please review and sign the attached physical therapy evaluation. Thank you. [facility] PT [facility] Outpatient Eval Start: 09/02/23 07:33 Freq: Status: Active Protocol: Document 09/03/23 07:24 TLQ (Rec: 09/03/23 09:59 TLQ [id number]) E-signed By Vi Dee DPT Physical Therapy Outpatient Evaluation Insurance Information Recert Due Date 12/02/23 Insurance Name Medicare B,[employer] Insurance Information/Comments [place] [facility] Dizziness and giddiness R42 Concussion with loss of consciousness status unknown S06.0XAA Treating Diagnosis Impaired balance R26.81 BPPV, right ear H81.11 Referring MD Kirti Bonilla PA-C Subjective Subjective Ruthy fell down a flight of stairs on 06/25/23, sustained a right wrist fracture and bruised many ribs per her report. She has attended occupational therapy to address her wrist, cleared by orthopedics and has graduated from OT. Noticing some balance issues and dizziness since her fall. Presents today with a cane, was not using this prior to her fall. Denies any new falls since June. Her main challenge is that she feels off balance during the day when she is walking around , difficulty with walking down the sloped floor at [facility]. She has been getting dizziness in the mornings when getting out of bed, feels like the room is spinning when she rolls to get out of bed. Typically rolls towards her left but can feel this when moving both directions. Has a history of motion sickness. PMHx: peripheral sensory neuropathy, T2DM, hyperlipidemia, essential hypertension, obstructive sleep apnea (CPAP), R distal ulna fx Date of Last Physician Visit 09/01/23 Current Work Status Retired Precautions Treatment Precautions/Contraindications Date of onset: 06/25/23 Therapy Limitations/Systems Review Not Limited Objective Other/Pertinent Objective CERVICAL SPINE ROM: 30 extension/30 flexion/ 45 rotation Palpation: non-tender with palpation, increased tone palpated in BL upper trap OCULOMOTOR SCREEN H-test: normal Saccades: difficult with diagonals Convergence: normal VOR: completes slowly, no dizziness VOR cancellation: normal COORDINATION alt. supination/pronation: normal OTHER ASSESSMENTS Hartman Hallpike: + on R with up- beating/torsional nystagmus < 10 seconds with dizziness reported; dizziness reported on L no observable nystagmus BALANCE/CTSIB Romberg eyes open firm surface : 30 second, mild postural sway Romberg eyes closed firm surface: 30 seconds, moderate postural sway Romberg eyes open foam surface : 30 seconds, moderate postural sway Romberg eyes closed form surface: 30 seconds with NBOS, moderate postural sway BALANCE 30 second STS: 5 reps with arms crossed (<10 reps for females ages 70-74 indicates increased risk of falls) TUG: NT (>13.5 seconds indicates increased risk of falls) GAIT slow emma with use of SEC 4-ITEM DGI: NT/12 (<10/12 indicates increased risk of falls) Horizontal head turns Vertical head turns Gait on level surfaces Changes in gait speed Assessment Assessment/Impression Ruthy is a 73-year-old woman who presents to physical therapy to address concerns of impaired balance and dizziness since falling down her stairs on 06/25/23. Since this incident she has been ambulating with a cane, previously did not rely on an assistive device. No new falls since her incident in June, ambulating with a slow emma . She is at an increased risk of falls based on her performance during 30 second sit to stand test. Mild sensory disorganization present with CTSIB assessment. Further balance assessments were limited today due to multiple components of examination, will continue to assess at next visit. In regards to dizziness her aggravating factors include rolling L/R when in supine and during supine to sit transitions, describes as room spinning. She has mild restrictions in cervical mobility but was non-tender with palpation. Brief dizziness reported during L Kota-Hallpike, dizziness and upbeating torsional nystagmus (<10 seconds) observed with R Hartman-Hallpike indicating posterior canalithiasis BPPV. She was educated on BPPV pathology and interventions with physical therapy, education included post-Anya instructions. Difficulty with diagonal saccades and slow emma during VOR, oculomotor assessments were otherwise unremarkable. Patient was educated on all examination findings today, goals were established and patient verbally agreed to POC. Based on today's assessments Ruthy has balance deficits and positional vertigo that can be treated with skilled interventions, she will benefit from physical therapy to address these concerns. Primary Functional Limitations impaired balance, dizziness, BPPV, VOR, saccades, gait Plan of Care Rehabilitation Potential Good Physical Therapy Goals In 4 weeks: - Ruthy will complete 7 repetitions during 30sSTS to demonstrate improved functional strength and transitional balance. - Ruthy will report a 50% subjective improvement in her dizziness symptoms when getting out of bed in the morning. In 12 weeks: - Ruthy will complete 10 reps during 30sSTS to decrease her risk of falls during transitional movements. - Ruthy will report resolution of dizziness with all head positions and positional changes for >5 consecutive days to improve safety with transfers and daily activities . - Ruthy will complete TUG using LRD in <13.5 seconds to indicate a decreased risk of falls during gait and mobilty. - Ruthy will have good adherence to her HEP in order to manage progress outside of formal PT. Treatment Plan/Direct Interventions Canalith Repositioning,Gait Training,Manual Therapy, Neuromuscular Re-ed,Self-Care/ Home Management,Therapeutic Activities,Therapeutic Exercises Frequency/Duration 1-2x/week for 4 weeks followed by 1x/week for up to 8 weeks Patient Will Be Discharged From Therapy Completion of LTG(s),Skills Plateau,Independent w/HEP, Independently Progressing Evaluation Billing Untimed Code Treatment Minutes 38 Complexity Low Certification Information Initial Certification Date 09/03/23 Ending Certification Date 12/02/23 Provider Signature Required Yes Provider Signature Shows Agreement With POC & Medical Necessity Physician NPI Number Write NPI# Here Physician Comment/Change : Physician Signature & Date Requested Please Sign/Date Here
== END 2023-12-22 11:05 | disposition home or self-care (01) ==
PROVIDERS: PCP Internal Medicine; Visit Provider Physician Assistant Surgical
DX: S52.601A Unspecified fracture of lower end of right ulna, initial encounter for closed fracture (principal); S06.0XAA Concussion with loss of consciousness status unknown, initial encounter; H81.11 Benign paroxysmal vertigo, right ear; R26.81 Unsteadiness on feet; R60.9 Edema, unspecified; R53.1 Weakness; Z74.09 Other reduced mobility; Z51.89 Encounter for other specified aftercare
CPT/HCPCS: 95992; 97033; 97110; 97112; 97140; 97161; 97165; 97530; X5282

== ENCOUNTER 2024-10-02 14:30 | Outpatient (RCR) | payer MEDICARE, BC, SELFPAY | END 2025-01-04 16:20 | disposition home or self-care (01) | PROVIDERS: PCP Surgery; Visit Provider Surgery | DX: H81.12 Benign paroxysmal vertigo, left ear (principal); H81.11 Benign paroxysmal vertigo, right ear; R26.81 Unsteadiness on feet; Z51.89 Encounter for other specified aftercare | CPT/HCPCS: 95992; 97112; 97161 ==